=== PATIENT | female | born 1950 | race African-American/Black ===

== ENCOUNTER 2020-11-19 09:39 | Emergency (ER) | payer OTHER ==
[~2020-11-19] VITALS: Ht 162.6 cm; Wt 72.6 kg
[2020-11-19] MEDS ORDERED: METHYLPREDNISOLONE SOD SUCC 125 MG/2 ML VIAL IV STA (10:09)
[2020-11-19] MEDS ORDERED: IPRATROPIUM BROMIDE (0.02%) 0.5MG/2.5ML NEB HHN STA (10:09)
[2020-11-19] MEDS ORDERED: ALBUTEROL (0.083%) 2.5MG/3ML NEB HHN STA (10:09)
[2020-11-19 10:15] LABS: BASOPHILS % 0.5 % (0.0-2.0); EOSINOPHILS % 1.9 % (0.0-5.0); HEMOGLOBIN. 13.6 g/dL (12.0-16.0); LYMPHOCYTES % 22.5 % (20.0-50.0); MEAN CORPUSCULAR HEMOGLOBIN 29.1 pg (28.0-32.0); MEAN CORPUSCULAR VOLUME 87.3 fL (81.0-99.0); MEAN PLATELET VOLUME 7.8 fl (7.4-10.4); MONOCYTES % 7.2 % (2.0-8.0); NEUTROPHILS % 67.9 % (40.0-76.0); PLATELET 235 x1000/uL (130-400); RED BLOOD CELL COUNT 4.69 mill/uL (4.2-5.4); RED CELL DISTRIBUTION WIDTH 14.8 % (11.6-14.6)
[2020-11-19 10:19] LABS: CHLORIDE 108 mEq/L (98-107)
[2020-11-19] MEDS ORDERED: ASPIRIN 81MG TABLET PO ONE (13:45)
[2020-11-19 13:47] VITALS: BP 134/52
== END 2020-11-19 14:00 | disposition short-term general hospital (02) ==
LOC: ER 09:56
DX: R06.03 Acute respiratory distress (principal); Z87.891 Personal history of nicotine dependence
CPT/HCPCS: 36415; 71045; 80053; 82962; 83880; 84484; 85025; 93005; 94640; 96374; 99285; J2930

== ENCOUNTER 2024-05-28 14:18 | Emergency (ER) | payer OTHER ==
[~2024-05-28] VITALS: Ht 165.1 cm; Wt 90.0 kg
[2024-05-28 14:19] VITALS: O2SAT 99
[2024-05-28] MEDS: DIPHENHYDRAMINE 50MG/ML VIAL IV ONE (16:30)
[2024-05-28] MEDS: KETOROLAC 30MG/ML VIAL IV ONE (16:30)
[2024-05-28] MEDS: METOCLOPRAMIDE HCL 10MG/2ML VIAL IV ONE (16:30)
[2024-05-28 16:58] LABS: BASOPHILS % 0.5 % (0.0-2.0); EOSINOPHILS % 1.1 % (0.0-5.0); HEMATOCRIT. 42.2 % (36.0-48.0); HEMOGLOBIN. 13.5 g/dL (12.0-16.0); LYMPHOCYTES % 16.2 % (20.0-50.0); MEAN CORPUSCULAR HEMOGLOBIN 28.9 pg (28.0-32.0); MEAN CORPUSCULAR VOLUME 90.5 fL (81.0-99.0); MEAN PLATELET VOLUME 7.8 fl (7.4-10.4); MONOCYTES % 5.1 % (2.0-8.0); NEUTROPHILS % 77.1 % (40.0-76.0); PLATELET 239 x1000/uL (130-400); RED BLOOD CELL COUNT 4.66 mill/uL (4.2-5.4); RED CELL DISTRIBUTION WIDTH 15.7 % (11.6-14.6)
[2024-05-28 16:59] LABS: CHLORIDE 108 mEq/L (98-107); POTASSIUM 3.8 mEq/L (3.5-5.1); SODIUM 143 mEq/L (136-145)
[2024-05-28 17:00] LABS: CARBON DIOXIDE 29 mEq/L (21-32)
[2024-05-28 17:01] LABS: CALCIUM 8.9 mg/dL (8.7-10.4)
[2024-05-28 17:05] LABS: CREATININE 0.9 mg/dL (0.6-1.0); GLUCOSE 96 mg/dL (70-105); UREA NITROGEN BLOOD 18 mg/dL (9-23)
[2024-05-28 17:06] LABS: INR 0.9; PROTHROMBIN TIME 10.2 sec (9.6-11.0)
[2024-05-28 17:08] LABS: TROPONIN I HIGH SENSITIVITY 7 ng/L (3.0-34)
[2024-05-28 17:26] LABS: CLARITY URINE CLEAR (CLEAR); COLOR URINE YELLOW (YELLOW); GLUCOSE URINE NEGATIVE (NEGATIVE); KETONES URINE NEGATIVE (NEGATIVE); LEUKOCYTE ESTERASE URINE NEGATIVE (NEGATIVE); NITRITE URINE NEGATIVE (NEGATIVE); OCCULT BLOOD URINE NEGATIVE (NEGATIVE); PH URINE 5.5 (4.5-8.0); PROTEIN URINE NEGATIVE (NEGATIVE); SPECIFIC GRAVITY URINE 1.009 (1.005-1.030); UROBILINOGEN URINE 0.2 E.U./dL (0.2-1.0)
[2024-05-28] MEDS ORDERED: METO-293 MT (17:56)
[2024-05-28 18:24] VITALS: BP 145/58; PULSE 68; RESP 18; TEMP 36.78072; O2SAT 98
[2024-05-28 18:46] LABS: TROPONIN I HIGH SENSITIVITY 7 ng/L (3.0-34)
== END 2024-05-28 18:37 | disposition home or self-care (01) ==
LOC: ER 14:18
DX: I10 Essential (primary) hypertension (principal); Z86.39 Personal history of other endocrine, nutritional and metabolic disease
CPT/HCPCS: 99285; 96374; 70450; 96375; 71045; 80048; 81003; 83880; 85025; 85610; 84484; 36415; J1200; J1885; J2765